=== PATIENT | male | born 1975 | race African-American/Black ===

== ENCOUNTER 2023-09-04 10:32 | Emergency (ER) | payer OTHER ==
[~2023-09-04] VITALS: Ht 175.3 cm; Wt 81.6 kg
[2023-09-04] MEDS: FENTANYL CITRATE/PF 50MCG/ML 2ML VIAL IV ONE (10:58)
[2023-09-04] MEDS: SODIUM CHLORIDE 0.9% 1,000 ML IV ONE (11:03)
[2023-09-04 12:09] VITALS: O2SAT 99
[2023-09-04] MEDS: KETAMINE HCL 50 MG/ML 10ML IV ONE (12:21)
[2023-09-04] MEDS ORDERED: NAPR220C61 MT (13:55)
[2023-09-04 14:00] VITALS: BP 123/80; PULSE 84; RESP 16; TEMP 98.4
== END 2023-09-04 14:34 | disposition home or self-care (01) ==
LOC: ER 10:32
DX: S43.034A Inferior dislocation of right humerus, initial encounter (principal); X58.XXXA Exposure to other specified factors, initial encounter; Y93.89 Activity, other specified; Y92.89 Other specified places as the place of occurrence of the external cause; Y99.8 Other external cause status
CPT/HCPCS: 73030; 94640; 23650; 96361; 96374; 99152; 99285; J3010; J3490; J7030; Z7610 ×2; 96375; A4565